=== PATIENT | male | born 1945 | race African-American/Black ===

== ENCOUNTER 2021-06-28 17:17 | Inpatient (IN) | payer OTHER ==
[~2021-06-28] VITALS: Ht 182.9 cm; Wt 61.2 kg
[2021-06-28] MEDS ORDERED: SODIUM CHLORIDE 0.9% 1,000 ML IV ONE (17:30)
[2021-06-28 18:09] LABS: BASOPHILS % 0.6 % (0.0-2.0); EOSINOPHILS % 0.9 % (0.0-5.0); HEMATOCRIT. 33.8 % (42.0-52.0); HEMOGLOBIN. 11.2 g/dL (14.0-18.0); LYMPHOCYTES % 41.2 % (20.0-50.0); MEAN CORPUSCULAR HEMOGLOBIN 30.1 pg (28.0-32.0); MEAN CORPUSCULAR VOLUME 90.3 fL (80.0-94.0); MONOCYTES % 12.9 % (2.0-8.0); NEUTROPHILS % 44.4 % (40.0-76.0); PLATELET 260 x1000/uL (130-400); RED BLOOD CELL COUNT 3.74 mill/uL (4.7-6.1); RED CELL DISTRIBUTION WIDTH 15.5 % (11.6-14.6)
[2021-06-28 18:18] LABS: INR 1.1; PROTHROMBIN TIME 11.3 sec (9.6-11.0)
[2021-06-28 18:23] LABS: CHLORIDE 112 mEq/L (98-107)
[2021-06-28 18:29] LABS: ETHANOL BLOOD < 10 mg/dL
[2021-06-28 18:30] LABS: C REACTIVE PROTEIN QUANT 0.9 mg/L (0.0-3.0); PHOSPHORUS 2.8 mg/dL (2.5-4.9)
[2021-06-28 20:50] LABS: CLARITY URINE CLEAR (CLEAR); COLOR URINE YELLOW (YELLOW); KETONES URINE NEGATIVE (NEGATIVE); LEUKOCYTE ESTERASE URINE NEGATIVE (NEGATIVE); NITRITE URINE NEGATIVE (NEGATIVE); OCCULT BLOOD URINE NEGATIVE (NEGATIVE); PROTEIN URINE NEGATIVE (NEGATIVE); SPECIFIC GRAVITY URINE 1.009 (1.005-1.030); UROBILINOGEN URINE 0.2 E.U./dL (0.2-1.0)
[2021-06-28 21:00] LABS: *AMPHETAMINES SCREEN URINE NEGATIVE (NEGATIVE); *BARBITURATES SCREEN URINE NEGATIVE (NEGATIVE)
[2021-06-28 21:01] LABS: *BENZODIAZEPINES SCREEN URINE NEGATIVE (NEGATIVE); *COCAINE SCREEN URINE NEGATIVE (NEGATIVE); CANNABINOID URINE SCREEN NEGATIVE (NEGATIVE); METHADONE URINE SCREEN NEGATIVE (NEGATIVE); OPIATES URINE SCREEN NEGATIVE (NEGATIVE); PHENCYCLIDINE URINE SCREEN NEGATIVE (NEGATIVE)
[2021-06-29] MEDS ORDERED: DIPHENHYDRAMINE 50MG/ML VIAL IV PRN (00:15)
[2021-06-29] MEDS ORDERED: ACETAMINOPHEN 325MG TABLET PO PRN ×2 (00:15)
[2021-06-29] MEDS ORDERED: GUAIFENESIN 200MG/10ML SUGAR FREE UDC PO PRN (00:15)
[2021-06-29] MEDS ORDERED: ONDANSETRON HCL 4MG/2ML INJ IV PRN (00:15)
[2021-06-29] MEDS: SODIUM CHLORIDE 0.9% INJ 3ML FLUSH IVF SCH ×3 (06:01→22:15)
[2021-06-29 08:00] VITALS: BP 127/76
[2021-06-29 08:15] VITALS: BP 127/76
[2021-06-29 12:00] VITALS: BP 109/43
[2021-06-29 16:00] VITALS: BP 123/82
[2021-06-29 20:00] VITALS: BP 141/84
[2021-06-29] MEDS: HALOPERIDOL LACTATE 5MG/ML VIAL IM PRN (20:10)
[2021-06-30] VITALS: BP 139/90
[2021-06-30 04:00] VITALS: BP 131/63
[2021-06-30] MEDS: SODIUM CHLORIDE 0.9% INJ 3ML FLUSH IVF SCH ×3 (06:11→21:07)
[2021-06-30 08:00] VITALS: BP 123/79
[2021-06-30 08:00] LABS: VITAMIN B12 SERUM 462 pg/mL (211-911)
[2021-06-30] MEDS ORDERED: CYANOCOBALAMIN 1000MCG/ML VIAL IM NR (10:15)
[2021-06-30 12:00] VITALS: BP 109/68
[2021-06-30 16:00] VITALS: BP 104/60
[2021-06-30] MEDS: NEOMY SULF/BACITRAC ZN/POLY OINT 28GM TOP SCH (21:06)
[2021-06-30] MEDS: RISPERIDONE 1MG TABLET PO SCH (21:06)
[2021-06-30] MEDS: HALOPERIDOL LACTATE 5MG/ML VIAL IM PRN (21:37)
[2021-07-01] VITALS (7 sets, daily range): BP systolic 84–101; BP diastolic 50–59
[2021-07-01] MEDS: SODIUM CHLORIDE 0.9% INJ 3ML FLUSH IVF SCH ×3 (05:54→21:30)
[2021-07-01] MEDS: RISPERIDONE 1MG TABLET PO SCH ×2 (09:49→21:29)
[2021-07-01] MEDS: MIDODRINE HCL 5MG TABLET PO SCH (17:16)
[2021-07-01] MEDS: NEOMY SULF/BACITRAC ZN/POLY OINT 28GM TOP SCH (21:29)
[2021-07-02] VITALS (7 sets, daily range): BP systolic 90–115; BP diastolic 43–90
[2021-07-02] MEDS: SODIUM CHLORIDE 0.9% INJ 3ML FLUSH IVF SCH ×2 (06:50→13:25)
[2021-07-02] MEDS: MIDODRINE HCL 5MG TABLET PO SCH ×3 (09:24→17:33)
[2021-07-02] MEDS: RISPERIDONE 1MG TABLET PO SCH (09:24)
== END 2021-07-02 20:36 | disposition home or self-care (01) | DRG 314 ==
LOC: ER 17:17 → MICUSO 21:04 → 5WST 06-29 09:00
PROVIDERS: ADMIT Internal Medicine; ATTEND Internal Medicine
DX: I95.9 Hypotension, unspecified (principal); E43 Unspecified severe protein-calorie malnutrition; F23 Brief psychotic disorder; Z68.1 Body mass index [BMI] 19.9 or less, adult; D72.819 Decreased white blood cell count, unspecified; D64.9 Anemia, unspecified; S80.811A Abrasion, right lower leg, initial encounter; Z20.822 Contact with and (suspected) exposure to COVID-19; X58.XXXA Exposure to other specified factors, initial encounter; Y93.01 Activity, walking, marching and hiking; Y92.89 Other specified places as the place of occurrence of the external cause; Y99.8 Other external cause status; Z79.899 Other long term (current) drug therapy
CPT/HCPCS: 36415; 71045; 80053; 80305; 80320; 81003; 82140; 82607; 83605; 83735; 83880; 84100; 84145; 84443; 84484; 85025; 86140; 86592; 87426; 93005; 99285; A6261; J1200; J1630; J3420; J7030; G0480